=== PATIENT | female | born 2000 | race Caucasian/White ===

== ENCOUNTER 2019-03-18 09:54 | Emergency (ER) | payer OTHER, SELFPAY ==
--- NOTE | 2019-03-18 09:56 | ED.GENADUL_ITS ---
Discharge Plan Disposition Patient Disposition: HOME Condition: Fair Discharge Details Chief Complaint: Orthopedic Clinical Impression: Ankle sprain Primary Care Provider: Ana,Local ED Provider: Lorene Carr Discharge Instructions Instructions: Ankle Sprain (ED) Additional Instructions: X-ray reviewed by myself as well as the radiologist with no evidence to suggest fracture. Your exam is concerning for injury to ATFL, see anatomic pictures provided. Encourage rest, ice, elevation. Tylenol and ibuprofen as needed for discomfort. Please continue with the boot while pain persists. As pain improves, you may advance to Pawan wrap or splint under your sneaker. Continue with crutches as needed. Please follow-up with primary care in 2 weeks for reevaluation. Seek care urgently once again with new/worsening symptoms. Medical Decision Making Patient is a 18-year-old female presenting with chief complaint of right ankle pain. 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 Since that time, she has not been able to bear weight on the ankle. She is indicating pain maximal over the ATFL as well as the distal fibula. She has a notable swelling around this area. She has been mobilizing with Pawan bandage, elevating and inability with crutches. She denies other injury the time of the incident. Has not injured this historically. Concern for possible bony injury, will obtain x-ray. Patient does not have any pain to palpation over the Achilles tendon, no defect is palpable. No pain over the proximal fibula. No pain over the fifth metatarsal. Sensation and vascular exam intact X-ray reviewed by myself and radiologist without any acute bony abnormalities. I discussed these findings with the patient. Advised sprain, particular involving the ATFL. Encourage rest, ice, elevation. Tylenol and ibuprofen as needed for discomfort. Given the level of discomfort, feel the boot is appropriate at this time. We discussed that advanced out of the boot but I did asked that she be reevaluated in the next 2 weeks. We discussed activities that she should avoid. All the questions and concerns were addressed and she is in agreement with this plan. HPI General Mode of arrival: ambulatory (ambulating with crutches) . Date/Time Provider Initiated Documentation: 03/18/19 09:56 . Limitations to Documentation: no limitations . Information obtained by: patient and RN notes reviewed . History of Present Illness 18 year old F presents to the emergency department with the chief complaint of right ankle pain and swelling after fall yesterday, described as moderate, with intensity rated at 7. Quality is described as aching, and is localized to the right and lower extremity. Patient reports no radiation. Patient started experiencing this day(s) (1) and it has been constant. Immobilization improves symptom(s), Movement worsens symptoms . Patient notes no other symptoms.. Patient did receive the following treatments prior to arrival, other (pawan wrap, crutches, elevation) Related Data Allergies Allergy/AdvReac Type Severity Reaction Status Date / Time No Known Allergies Allergy Unverified 03/18/19 10:06 Review of Systems Constitutional Reports as per HPI, Denies chills, Denies fever(s), Denies headache(s) and Denies weakness ENT Denies headache(s) Cardiovascular Reports as per HPI Respiratory Reports as per HPI and Denies cough Musculoskeletal Reports as per HPI and Denies tingling Integumentary/Breasts Reports as per HPI, Denies rash and Denies wounds Neurologic Reports as per HPI, Denies headache(s), Denies tingling, Denies paresthesias and Denies weakness [facility] Social History Smoking/Tobacco Use Status: Never Alcohol Intake: never Substance use type: does not use Do you feel safe at home: Yes Do you feel safe in your relationship?: Yes Exam Const General: cooperative, healthy appearing, comfortable, no acute distress, well developed and well groomed Nutritional Appearance: average body habitus and well nourished Orientation: alert and awake Resp Effort & Inspection: normal respiratory effort, able to speak in complete sentences and no respiratory distress Cardio Rate: regular rate Rhythm: regular rhythm Skin General skin exam: no rashes or lesions noted Lesions: no lesions Rashes: no rashes Trauma: no lacerations or abrasions Neuro General: alert and awake Cognition: normal cognition Speech: speech normal Gait: normal gait Motor: muscle tone normal throughout Sensory Exam: no sensory deficits noted Extrem Right lower extremity: normal capillary refill, knee (normal, no pain over proximal fibula), lower leg Details: normal to inspection and no edema; no erythema, no tenderness, no localized swelling, no palpable cords, no crepitus, no deformity and no unusual warmth, ankle Details: abnormal to inspection (swelling lateral malleolus), tenderness Location: of the lateral malleolus and of the anterior talofibular ligament; not of the medial malleolus and not of the achilles tendon and swelling Details: laterally; ROM abnormal (limited secondary to pain laterally) and foot Details: normal capillary refill, normal to inspection, toes with normal ROM, no edema and vascular exam Details: dorsalis pedis pulse present and normal capillary refill; no tenderness (no pain over 5th metatarasl), no abrasion, no laceration, no ecchymosis and no crepitus; ROM limited and joint enlargement noted Psych Appearance: grossly normal and well kempt Mental Status: mental status grossly normal Speech and Movement: speech and movement normal
[2019-03-18 10:01] VITALS: BP 106/64; RESP 14; TEMP 36.6; O2SAT 99
--- NOTE | 2019-03-18 10:14 | DI.RAD_ITS ---
SYMPTOMS/DIAGNOSIS: TRAUMA, LATERAL PAIN RIGHT ANKLE: Three views. No acute fracture or dislocation is seen. There is soft tissue swelling about the ankle laterally. IMPRESSION: Soft tissue swelling. No acute fracture or dislocation.
[2019-03-18 11:57] VITALS: BP 100/56; PULSE 63; RESP 16
== END 2019-03-18 12:06 | disposition home or self-care (01) ==
PROVIDERS: Emergency Provider Physician Assistant; PCP Pediatrics
DX: S93.401A Sprain of unspecified ligament of right ankle, initial encounter (principal); X50.9XXA Other and unspecified overexertion or strenuous movements or postures, initial encounter; Y93.02 Activity, running
CPT/HCPCS: 99283; 73610; 99282